=== PATIENT | male | born 1990 | race Caucasian/White ===

== ENCOUNTER 2016-12-24 06:40 | Inpatient (IN) | payer BC, OTHER ==
[~2016-12-24] VITALS: Ht 185.4 cm; Wt 121.2 kg
--- NOTE | ~2016-12-24 | HC ---
[facility] [place] [address] CONSULTATION Name: BRYAN GARCIA Room #: 249-P [facility] IN M.R.#: [id number] Admission: 12/24/16 Attend Phys: Vernon Alcocer DO Discharge: Date of : 88 Report #: [id number] THIS REPORT FOR: //name// CC: FAM physician/PCP Vernon Alcocer DATE OF SERVICE: 12/25/2016 NEPHROLOGY CONSULTATION ATTENDING PHYSICIAN: Vernon Alcocer DO REASON FOR CONSULTATION: Acute kidney injury. HISTORY OF PRESENT ILLNESS: This 26-year-old young man, heavy drinker presented with severe abdominal pain, he was found to have severe pancreatitis. Creatinine elevating and calcium dropping, we are called to see him, potassium 6.3. PAST MEDICAL HISTORY: Otherwise, reasonably unremarkable. No prior surgeries or hospitalizations. He has a history of hypertension. He was on medication for. He does not know what that medication was and is not taking it recently. FAMILY HISTORY: His sister has some sort of kidney problem. His father has hypertension as does his brother. SOCIAL HISTORY: He used to smoke, he quit. He drinks rather heavily maybe a fifth of rum every couple of days with mixed drinks. REVIEW OF SYSTEMS: GENERAL: He has been feeling reasonably well until this illness. EYES: His vision is okay. ENT: Hearing okay, swallows okay. Denies mouth sores. ENDOCRINE: No diabetes or thyroid disease noted in the past. RESPIRATORY: He is not short of breath, no pleuritic pain, no hemoptysis. CARDIAC: No chest pain, angina or history of heart disease or palpitations. GASTROINTESTINAL: He has had some nausea and vomiting, severe abdominal pain with his current episode of pancreatitis. GENITOURINARY: No history of urinary tract infection, dysuria, hematuria, or renal stones. NEUROLOGIC: No history of seizure, syncope, or stroke. No history of neuropathy. PSYCHIATRIC: Denies depression or anxiety. PHYSICAL EXAMINATION: GENERAL: This is a somewhat ill-appearing diaphoretic young man, little bit [facility] [address] [place] [address] CONSULTATION Name: BRYAN GARCIA Room #: 249-P [facility] IN .R.#: [id number] Admission: 12/24/16 Attend Phys: Vernon Alcocer DO Discharge: Date of : 89 Report #: [id number]. SKIN: Otherwise, unremarkable except a little bit cold distally. SKELETAL: Well developed, well nourished. HEENT: Extraocular movements are full. Vision intact. No scleral icterus. Mucous membranes dry. NECK: Veins flat. CHEST: Clear. HEART: Regular. ABDOMEN: Quiet, quite tender in the upper quadrants and mid epigastrium. EXTREMITIES: No peripheral edema. The feet are cold. The peripheral pulses are diminished. LABORATORY DATA: Hemoglobin is 20, up from 17, white count 25.2, 13% bands, platelets 242. Sodium 130, potassium is 6.3, chloride 97, bicarbonate 22, BUN 29, creatinine 2.4, glucose 295, calcium which was 9.7 is down to 6.7. ASSESSMENT AND PLAN: He has acute pancreatitis with a poor prognostic feature of a fall in serum calcium, aggressive IV fluids are being appropriately given. He does have some urine output. I will check urine for sodium and creatinine for completeness. I suspect he may well develop worsening acute renal failure. His creatinine at the time of admission was only 0.9, but ra rapidly to 2.9, now 2.4 with the IV fluids. 1. Hyperkalemia. We will treat the glucose that should help bring the potassium down. I will give him an amp of bicarbonate and lots of IV fluids and hopefully his kidneys will come around. 2. Severe acute pancreatitis, supportive therapy. Prognosis is fair at best. 3. History of hypertension. <ELECTRONICALLY SIGNED> By: Maico Hugo MD 12/26/16 1045 [id number] Maico Hugo MD /nt
--- NOTE | ~2016-12-24 | EKG ---
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 : 1990 Requested By: Jose Willard Order Number: [id number] MD: Jere Garcia Measurements Intervals [place] Rate: 82 P: 47 NV: 155 QRS: 23 QRSD: 100 T: -3 QT: 418 QTc: 489 Interpretive Statements Sinus rhythm Borderline T wave abnormalities Prolonged QT interval Baseline wander in lead(s) V5,V6 No previous ECG available for comparison Electronically Signed On 12-24-2016 7:59:05 CDT by Jere Garcia [email or web address] <ELECTRONICALLY SIGNED> By: Jere Garcia MD, [facility] 12/24/16 [phone] 0647 Jere Garcia MD, FACC /EPI
--- NOTE | ~2016-12-24 | EKG ---
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
--- NOTE | ~2016-12-24 | HC ---
[facility] [place] [address] CONSULTATION Name: GARCIABRYANLoki ANTONIO Room #: 249-P ADM IN M.R.#: [id number] Admission: 12/24/16 Attend Phys: Vernon Alcocer DO Discharge: Date of : 88 Report #: [id number] THIS REPORT FOR: //name// CC: Giovani Yousif MD [facility] physician/PCP Maico Alcocer DO DATE OF SERVICE: 12/25/2016 PULMONARY CONSULTATION REFERRING PROVIDER: Vernon Alcocer DO REASON FOR CONSULTATION: Severe pancreatitis and fever. CHIEF COMPLAINT: Abdominal pain. HISTORY OF PRESENT ILLNESS: Our group was asked to see the patient in consultation in the ICU at [facility]. A 26-year-old male with past medical history significant for hypertension as well as probable alcohol abuse, presented with about 24 hours of severe abdominal pain, sharp in nature yesterday, started on some IV fluids, found to have significant pancreatitis and fatty liver on imaging studies. Denied any fevers, chills or sweats at that time however, ____ become very diaphoretic today, worsening abdominal pain, tachycardia and some diminished urine output. Laboratory is significantly abnormal with signs of hemoconcentration with the hemoglobin now at 20 and hyperkalemia in addition to hypocalcemia. Arterial blood gas revealed some metabolic acidosis with an elevated lactate of 4. He is now in the ICU on broad spectrum antimicrobial coverage and awaiting further management. He is able to speak in full sentences. Other than being diaphoretic, he is reasonably comfortable with the [employer] pump. ALLERGIES: None known. PAST MEDICAL HISTORY: Hypertension, probable alcohol abuse. SOCIAL HISTORY: Nonsmoker. Alcohol consumption as described. He states about a half a fifth per day for the past several months. FAMILY HISTORY: Noncontributory. REVIEW OF SYSTEMS: CONSTITUTIONAL: Some fever, chills and diaphoresis, general malaise. ENT: No upper respiratory congestion or rhinorrhea. [facility] [address] [place] [address] CONSULTATION Name: RADHABRYANLoki ANTONIO Room #: 249-P [facility] IN ..#: [id number] Admission: 12/24/16 Attend Phys: Vernon Alcocer DO Discharge: Date of : 88 Report #: [id number] CARDIOVASCULAR: No chest pains or palpitations. GASTROINTESTINAL: Significant sharp abdominal pain, some mild nausea, no vomiting, no diarrhea. GENITOURINARY: No dysuria, urinary frequency or hematuria. INTEGUMENT: Denies any rash. MUSCULOSKELETAL: No joint pains, has had some mild swelling in his lower extremities since admission. PHYSICAL EXAMINATION: VITAL SIGNS: Afebrile, pulse 120s and regular, respiratory rate 22, blood pressure 142/95, oxygen saturation 97% on room air. GENERAL: This is a pleasant young male in mild distress. HEENT: Clear oropharynx. No thrush. No erythema. NECK: Supple, no lymphadenopathy. LUNGS: Diminished in the bases, but otherwise clear. CARDIOVASCULAR: Heart is regular, tachycardic. No murmurs noted. ABDOMEN: Diffusely distended with some hepatosplenomegaly noted. EXTREMITIES: With 1+ edema, slightly cool, but 1+ pulses. LABORATORY DATA: CT scan as described in the HPI. White blood cell count 25,000, hemoglobin 20, hematocrit 60, platelet count 242. Sodium 130, potassium 6.3, chloride 97, bicarbonate 22, BUN 29, creatinine 2.4, glucose 295, calcium 6.7. IMPRESSION: 1. Severe pancreatitis without finding of pseudocyst on CT scan. 2. Febrile illness. 3. Acute renal failure, nonoliguric. 4. Hyperkalemia. 5. Hyperglycemia. SUGGESTIONS: 1. Aggressive hydration. 2. Insulin to control hyperglycemia. 3. Nephrology consultation. 4. Observation for possible alcohol withdrawal. 5. Additional recommendations to follow along with you. Thank you for requesting our suggestions. Total critical care time 25 minutes, not including procedures discussed with nursing, the patient and Dr. Hugo, nephrology. By: [id number] Jeronimo Santana MD /nt
--- NOTE | ~2016-12-24 | HC ---
[facility] [address] [place] [address] CONSULTATION Name: BRYAN GARCIA Room #: 249-P [facility] IN M.R.#: [id number] Admission: 12/24/16 Attend Phys: Vernon Alcocer DO Discharge: Date of : 88 Report #: [id number] THIS REPORT FOR: //name// CC: RAD physician/PCP Vernon Alcocer REASON FOR CONSULTATION: I was asked to evaluate concerning fever and sepsis in the setting of acute pancreatitis. HISTORY OF PRESENT ILLNESS: The patient is a 26-year-old who presented through the emergency room on 12/24/2016, with rather acute onset of nausea, vomiting and upper abdominal to back pain. No prior history of pancreatitis. He drinks liquor on a daily basis. Otherwise, he has a history of hypertension. No reported trauma. No new medications. Admitted through the emergency room. Over the last 12 hours, H has had episode of chills, tachycardia and was transferred to monitored unit. He reports significant abdominal pain when attempting to move. Pain radiates to his back. He has had no vomiting so far today. He has had no stool output, had decreased urine output. ALLERGIES: PENICILLIN with hives. MEDICATIONS: As noted on his MAR, now receiving IV fluids and morphine. PAST MEDICAL HISTORY: Hypertension. FAMILY HISTORY: Noncontributory. SOCIAL HISTORY: Nonsmoker, no HIV risk factors. , he lived in [place], then in [place] for last several months. REVIEW OF SYSTEMS: No cough or sputum production. Does have some shortness of breath with activity. PHYSICAL EXAMINATION: VITAL SIGNS: Temperature 97.4, pulse 127, respiratory rate 22, and blood pressure 142/95. GENERAL: The patient was alert and conversant. SKIN: Mottled in his extremities. EYES: Unremarkable. MOUTH: Unremarkable. NECK: Supple. LUNGS: Few crackles in the bases bilaterally. HEART: Tachycardic and regular. ABDOMEN: Diffusely tender with guarding. Marked tenderness in the epigastric region. EXTREMITIES: Unremarkable. NEUROLOGIC: Nonfocal. [facility] [address] [place] [address] CONSULTATION Name: BRYAN GARCIA Room #: 249-P [facility] IN M.R.#: [id number] Admission: 12/24/16 Attend Phys: Vernon Alcocer DO Discharge: Date of : 88 Report #: [id number] LABORATORY STUDIES: Sodium 130, potassium 6.3, bicarbonate 22, anion gap of 11, creatinine 2.4, glucose 272, AST 72, ALT 131, alk phos 49, bilirubin 1.5, lipase 10,000, albumin at 3.6, lactate 3.7, triglycerides 291. Hemoglobin 20, WBC 25.2, platelet count 242,000, 74% neutrophils, 13% bands. ABGs this morning on room air showed a pO2 of 68, pCO2 of 30, pH 7.3, the lactate of 4. CT scan of the abdomen and pelvis showed acute pancreatitis changes with surrounding inflammation and fluid tracking down his gutters. No loculated fluid collections. Fatty liver. Basilar atelectasis. IMPRESSION: A 26-year-old with acute pancreatitis and severe sepsis. He has marked leukocytosis, acute renal failure, mild lactic acidosis and developing basilar atelectasis. The patient is mottled and has had decreased urine output. He has hyperkalemia. He has hypocalcemia. Recommend ICU transfer for more intensive monitoring and fluid resuscitation. We will continue with IV antibiotic therapy and serial laboratory studies. Discussed with nursing staff and the patient's family. <ELECTRONICALLY SIGNED> By: Giovani Yousif MD 12/26/16 0850 1740 2037 Giovani Yousif MD /nt
[2016-12-24 06:43] VITALS: BP 145/98
[2016-12-24 07:04] LABS: HEMOGLOBIN 17.2 gm/dL (14.0-18.0); MCH 32.3 pg (26.0-34.0); MCHC 33.8 g/dL (28.0-37.0); MCV 95.7 fL (80.0-100.0); RBC 5.33 mil/uL (4.50-6.00); RDW 12.4 % (10.5-14.5); WBC 12.8 thou/uL (4.0-11.0)
[2016-12-24 07:14] LABS: CALCIUM 9.7 mg/dL (8.5-10.1); CREATININE 0.9 mg/dL (0.7-1.3); POTASSIUM 4.1 mmol/L (3.5-5.1)
[2016-12-24 07:21] LABS: ALBUMIN 4.4 g/dL (3.4-5.0); TOTAL BILIRUBIN 0.5 mg/dL (<0.1-1.0); TOTAL PROTEIN 8.1 g/dL (6.4-8.2)
[2016-12-24 08:38] VITALS: BP 161/95
[2016-12-24 11:00] VITALS: BP 172/109
[2016-12-24 11:24] VITALS: BP 182/123
[2016-12-24 16:00] VITALS: BP 198/138; BP 84/56
[2016-12-24 19:39] VITALS: BP 160/120
[2016-12-25] VITALS (13 sets, daily range): BP systolic 109–167; BP diastolic 54–129
[2016-12-25 06:28] LABS: MCH 33.1 pg (26.0-34.0); MCHC 33.7 g/dL (28.0-37.0); PLATELET COUNT 235 thou/uL (150-400); RBC 5.92 mil/uL (4.50-6.00); RDW 13.1 % (10.5-14.5); WBC 22.9 thou/uL (4.0-11.0)
[2016-12-25 06:31] LABS: HEMOGLOBIN 19.6 gm/dL (14.0-18.0); MANUAL DIFF YES
[2016-12-25 09:05] LABS: ALBUMIN 3.5 g/dL (3.4-5.0); ALKALINE PHOSPHATASE 49 U/L (46-116); BUN 24 mg/dL (7-18); CHLORIDE 95 mmol/L (98-107); CHOLESTEROL 157 mg/dL (<200); CO2 22 mmol/L (21-32); DIRECT BILIRUBIN 0.3 mg/dL (<0.1-0.3); GLUCOSE 343 mg/dL (74-106); HDL CHOLESTEROL 21 mg/dL (>40); LDL CHOLESTEROL 78 mg/dL (<100); SGOT 72 U/L (15-37); SGPT 135 U/L (30-65); TC:HDL 7.5 Ratio (Not establshd); TOTAL BILIRUBIN 1.4 mg/dL (<0.1-1.0); TOTAL PROTEIN 7.6 g/dL (6.4-8.2); TRIGLYCERIDE 291 mg/dL (<150); VLDL 58 mg/dL (<40)
[2016-12-25 09:22] LABS: ANION GAP 13 mmol/L (7-16); SODIUM 130 mmol/L (136-145)
[2016-12-25 09:23] LABS: CREATININE 2.9 mg/dL (0.7-1.3); POTASSIUM 6.2 mmol/L (3.5-5.1)
[2016-12-25 09:24] LABS: CALCIUM 7.6 mg/dL (8.5-10.1)
[2016-12-25 09:31] LABS: ABSOLUTE NEUTROPHILS 19.9 thou/uL (1.4-8.2); PLATELET ESTIMATE NORMAL; TOTAL CELL COUNT 100
[2016-12-25 10:01] LABS: HEMATOCRIT 59.9 % (42.0-52.0); HEMOGLOBIN 20.1 gm/dL (14.0-18.0); MCH 32.8 pg (26.0-34.0); MCHC 33.5 g/dL (28.0-37.0); MCV 97.8 fL (80.0-100.0); RBC 6.13 mil/uL (4.50-6.00); RDW 13.1 % (10.5-14.5); WBC 25.2 thou/uL (4.0-11.0)
[2016-12-25 10:13] LABS: CALCIUM 7.4 mg/dL (8.5-10.1); CREATININE 2.6 mg/dL (0.7-1.3)
[2016-12-25 10:18] LABS: POTASSIUM 6.1 mmol/L (3.5-5.1)
[2016-12-25 10:19] LABS: ALBUMIN 3.6 g/dL (3.4-5.0); TOTAL BILIRUBIN 1.5 mg/dL (<0.1-1.0); TOTAL PROTEIN 7.5 g/dL (6.4-8.2)
[2016-12-25 11:02] LABS: ABG SAMPLE TYPE ARTERIAL; BE(vivo) -8.4 mmol/L (-2 to +3); FIO2 21 %; HCO3 15.8 mmol/L (22.0-26.0); LACTATE 4.13 mmol/L (0.5-2.0); O2(CT) 26.4 mL/dL (15.0-23.0); O2Hb 92.5 % (92.0-98.0); PCO2 30.8 mmHg (35.0-45.0); PO2 68.4 mmHg (80.0-100.0); STICK SITE L.RADIAL; pH 7.327 (7.360-7.450); sO2 92.7 % (92.0-98.0); tCO2 16.7 mmol/L (24.0-30.0)
[2016-12-25 11:43] LABS: % SATURATION 12 % (20-39); IRON 39 ug/dL (65-175); TIBC 331 ug/dL (250-450); UIBC 292 ug/dL
[2016-12-25 15:41] LABS: CALCIUM 6.7 mg/dL (8.5-10.1); CREATININE 2.4 mg/dL (0.7-1.3)
[2016-12-25 15:46] LABS: POTASSIUM 6.3 mmol/L (3.5-5.1)
[2016-12-25 20:12] LABS: URINE BLOOD 1+ (Negative); URINE COLOR ORANGE; URINE GLUCOSE-RANDOM* NEGATIVE (Negative); URINE KETONES 1+ (Negative); URINE LEUKOCYTES-REFLEX NEGATIVE (Negative); URINE PROTEIN (DIPSTICK) 2+ (Negative); URINE SPECIFIC GRAVITY >= 1.030 (1.003-1.035); URINE UROBILINOGEN 0.2 E.U./dl (0.2-1.0)
[2016-12-25 20:14] LABS: ICTOTEST (BILI CONFIRMATORY) Negative (Negative); URINE BILIRUBIN NEGATIVE (Negative)
[2016-12-25 20:19] LABS: URINE CREATININE-RANDOM* 396.1 mg/dL
[2016-12-25 20:26] LABS: FINE GRANULAR CASTS >10 Many /LPF (None Seen); HYALINE CASTS >10 Many /LPF (None Seen)
[2016-12-25 20:26] LABS: CALCIUM 6.2 mg/dL (8.5-10.1); CREATININE 1.9 mg/dL (0.7-1.3); PHOSPHORUS 2.4 mg/dL (2.5-4.9)
[2016-12-25 20:27] LABS: AMORPHOUS URATES Few /LPF (None Seen); SQUAMOUS 0-3 Few /LPF (0-3)
[2016-12-25 20:28] LABS: URINE RBC 3-10 Few /HPF (0-2); URINE WBC-REFLEX 6-15 Few /HPF (0-5)
[2016-12-25 20:33] LABS: POTASSIUM 5.1 mmol/L (3.5-5.1)
[2016-12-25 21:08] LABS: CREATININE 1.9 mg/dL (0.7-1.3)
[2016-12-25 21:12] LABS: ABG SAMPLE TYPE VENOUS; BE(vivo) -6.6 mmol/L (-2 to +3); HCO3 16.9 mmol/L (22.0-26.0); LACTATE 2.64 mmol/L (0.5-2.0); O2(CT) 15.3 mL/dL (15.0-23.0); O2Hb VENOUS 65.5 (65.0-85.0); PCO2 VENOUS 29.4 mmHg (41.0-51.0); PO2 VENOUS 32.9 mmHg (35.0-45.0); sO2 VENOUS 62.9 % (65.0-85.0); tCO2 17.8 mmol/L (24.0-30.0)
[2016-12-25 21:13] LABS: ABG COMMENT NO COMPLICATIONS.; STICK SITE PICC
[2016-12-25 21:14] LABS: APTT 25.2 Seconds (24.5-32.8); FIBRINOGEN 421.4 mg/dL (210-360); INR 1.3; PROTIME 13.4 Seconds (9.3-11.4)
[2016-12-25 22:18] LABS: ABG SAMPLE TYPE VENOUS; BE(vivo) -8.6 mmol/L (-2 to +3); HCO3 14.8 mmol/L (22.0-26.0); LACTATE 1.91 mmol/L (0.5-2.0); O2Hb VENOUS 64.2 (65.0-85.0); PCO2 VENOUS 26.2 mmHg (41.0-51.0); PO2 VENOUS 33.2 mmHg (35.0-45.0); sO2 VENOUS 63.4 % (65.0-85.0); tCO2 15.6 mmol/L (24.0-30.0)
[2016-12-25 22:19] LABS: ABG COMMENT NO COMPLICATIONS.; STICK SITE PICC
[2016-12-25 23:48] LABS: ABG SAMPLE TYPE VENOUS; BE(vivo) -4.8 mmol/L (-2 to +3); HCO3 19.3 mmol/L (22.0-26.0); LACTATE 2.91 mmol/L (0.5-2.0); O2(CT) 17.7 mL/dL (15.0-23.0); O2Hb VENOUS 72.4 (65.0-85.0); PO2 VENOUS 37.8 mmHg (35.0-45.0); sO2 VENOUS 70.9 % (65.0-85.0); tCO2 20.4 mmol/L (24.0-30.0)
[2016-12-25 23:49] LABS: STICK SITE LINE
[2016-12-26] VITALS (21 sets, daily range): BP systolic 130–169; BP diastolic 85–112
[2016-12-26 01:07] LABS: POTASSIUM 3.5 mmol/L (3.5-5.1)
[2016-12-26 01:15] LABS: CREATININE 1.4 mg/dL (0.7-1.3)
[2016-12-26 01:16] LABS: CALCIUM 5.7 mg/dL (8.5-10.1)
[2016-12-26 01:25] LABS: FIBRINOGEN 327.3 mg/dL (210-360); INR 1.4; PROTIME 14.7 Seconds (9.3-11.4)
[2016-12-26 01:26] LABS: APTT 35.9 Seconds (24.5-32.8)
[2016-12-26 04:10] LABS: GLYCOHEMOGLOBIN (HGB A1C) 6.8 % (4.8-5.6)
[2016-12-26 05:56] LABS: MCH 32.6 pg (26.0-34.0); MCHC 33.8 g/dL (28.0-37.0); MCV 96.5 fL (80.0-100.0); RBC 4.36 mil/uL (4.50-6.00); RDW 12.8 % (10.5-14.5); WBC 18.9 thou/uL (4.0-11.0)
[2016-12-26 06:04] LABS: HEMOGLOBIN 14.2 gm/dL (14.0-18.0)
[2016-12-26 06:05] LABS: MANUAL DIFF YES
[2016-12-26 06:07] LABS: APTT 37.2 Seconds (24.5-32.8); FIBRINOGEN 367.5 mg/dL (210-360); INR 1.4; PROTIME 14.3 Seconds (9.3-11.4)
[2016-12-26 06:14] LABS: ALBUMIN 1.7 g/dL (3.4-5.0); ALKALINE PHOSPHATASE 26 U/L (46-116); ANION GAP 10 mmol/L (7-16); BUN 17 mg/dL (7-18); CHLORIDE 111 mmol/L (98-107); CO2 19 mmol/L (21-32); CREATININE 0.9 mg/dL (0.7-1.3); GLUCOSE 170 mg/dL (74-106); PHOSPHORUS 1.3 mg/dL (2.5-4.9); SGOT 44 U/L (15-37); SGPT 56 U/L (30-65); SODIUM 140 mmol/L (136-145); TOTAL PROTEIN 4.3 g/dL (6.4-8.2)
[2016-12-26 06:19] LABS: CALCIUM < 5.0 mg/dL (8.5-10.1); MAGNESIUM 0.8 mg/dL (1.8-2.4); POTASSIUM 2.9 mmol/L (3.5-5.1)
[2016-12-26 09:37] LABS: ABSOLUTE NEUTROPHILS 17.6 thou/uL (1.4-8.2); PLATELET COUNT 122 thou/uL (150-400); PLATELET ESTIMATE NORMAL; TOTAL CELL COUNT 100
[2016-12-26 14:20] LABS: HEMATOCRIT 46.2 % (42.0-52.0); MCH 33.2 pg (26.0-34.0); MCHC 34.5 g/dL (28.0-37.0); MCV 96.2 fL (80.0-100.0); PLATELET COUNT 144 thou/uL (150-400); RBC 4.81 mil/uL (4.50-6.00); RDW 12.7 % (10.5-14.5); WBC 17.7 thou/uL (4.0-11.0)
[2016-12-26 14:24] LABS: MANUAL DIFF YES
[2016-12-26 14:38] LABS: ALBUMIN 2.2 g/dL (3.4-5.0); MAGNESIUM 1.9 mg/dL (1.8-2.4)
[2016-12-26 14:40] LABS: POTASSIUM 3.9 mmol/L (3.5-5.1)
[2016-12-26 14:55] LABS: ABSOLUTE NEUTROPHILS 15.2 thou/uL (1.4-8.2); ATYPICAL LYMPHS 2 %; TOTAL CELL COUNT 100
[2016-12-26 14:58] LABS: ANISOCYTOSIS SLIGHT
[2016-12-27] VITALS (24 sets, daily range): BP systolic 129–185; BP diastolic 75–120
[2016-12-27 04:41] LABS: HEMATOCRIT 41.5 % (42.0-52.0); HEMOGLOBIN 14.1 gm/dL (14.0-18.0); MCH 32.8 pg (26.0-34.0); MCHC 34.1 g/dL (28.0-37.0); MCV 96.1 fL (80.0-100.0); PLATELET COUNT 143 thou/uL (150-400); RBC 4.32 mil/uL (4.50-6.00); RDW 12.8 % (10.5-14.5); WBC 14.9 thou/uL (4.0-11.0)
[2016-12-27 04:44] LABS: MANUAL DIFF YES
[2016-12-27 04:54] LABS: ALBUMIN 2.1 g/dL (3.4-5.0); CREATININE 0.9 mg/dL (0.7-1.3); MAGNESIUM 1.7 mg/dL (1.8-2.4); PHOSPHORUS 1.6 mg/dL (2.5-4.9); POTASSIUM 3.4 mmol/L (3.5-5.1); TOTAL BILIRUBIN 1.1 mg/dL (<0.1-1.0); TOTAL PROTEIN 5.8 g/dL (6.4-8.2)
[2016-12-27 04:56] LABS: CALCIUM 5.9 mg/dL (8.5-10.1)
[2016-12-27 05:45] LABS: ABSOLUTE NEUTROPHILS 13.6 thou/uL (1.4-8.2); TOTAL CELL COUNT 100
[2016-12-27 14:36] LABS: ALBUMIN 2.1 g/dL (3.4-5.0); CALCIUM 6.4 mg/dL (8.5-10.1); CREATININE 0.8 mg/dL (0.7-1.3); PHOSPHORUS 1.5 mg/dL (2.5-4.9); POTASSIUM 3.6 mmol/L (3.5-5.1)
[2016-12-28] VITALS (17 sets, daily range): BP systolic 132–179; BP diastolic 81–129
[2016-12-28 04:35] LABS: MAGNESIUM 1.9 mg/dL (1.8-2.4); PHOSPHORUS 2.2 mg/dL (2.5-4.9)
[2016-12-28 04:38] LABS: CREATININE 0.7 mg/dL (0.7-1.3); POTASSIUM 3.4 mmol/L (3.5-5.1); TOTAL BILIRUBIN 1.3 mg/dL (<0.1-1.0); TOTAL PROTEIN 4.8 g/dL (6.4-8.2)
[2016-12-28 11:05] LABS: HEMATOCRIT 36.6 % (42.0-52.0); HEMOGLOBIN 12.7 gm/dL (14.0-18.0); MCHC 34.6 g/dL (28.0-37.0); MCV 95.2 fL (80.0-100.0); PLATELET COUNT 167 thou/uL (150-400); RBC 3.84 mil/uL (4.50-6.00); RDW 12.6 % (10.5-14.5); WBC 15.6 thou/uL (4.0-11.0)
[2016-12-28 11:23] LABS: MANUAL DIFF YES
[2016-12-28 12:14] LABS: ABSOLUTE NEUTROPHILS 11.4 thou/uL (1.4-8.2); MYELOCYTES 3 %; TOTAL CELL COUNT 100
[2016-12-28 12:15] LABS: ANISOCYTOSIS SLIGHT
[2016-12-28 17:24] LABS: URINE BILIRUBIN NEGATIVE (Negative); URINE BLOOD TRACE (Negative); URINE COLOR YELLOW; URINE GLUCOSE-RANDOM* NEGATIVE (Negative); URINE KETONES NEGATIVE (Negative); URINE LEUKOCYTES-REFLEX NEGATIVE (Negative); URINE PROTEIN (DIPSTICK) NEGATIVE (Negative); URINE SPECIFIC GRAVITY <= 1.005 (1.003-1.035)
[2016-12-28 18:32] LABS: ALBUMIN 2.1 g/dL (3.4-5.0); CALCIUM 7.3 mg/dL (8.5-10.1); CREATININE 0.7 mg/dL (0.7-1.3); PHOSPHORUS 2.7 mg/dL (2.5-4.9); POTASSIUM 3.6 mmol/L (3.5-5.1)
[2016-12-29] VITALS (23 sets, daily range): BP systolic 152–183; BP diastolic 90–116
[2016-12-29 06:15] LABS: HEMATOCRIT 37.1 % (42.0-52.0); HEMOGLOBIN 12.5 gm/dL (14.0-18.0); MCH 32.4 pg (26.0-34.0); MCHC 33.9 g/dL (28.0-37.0); MCV 95.8 fL (80.0-100.0); PLATELET COUNT 193 thou/uL (150-400); RBC 3.87 mil/uL (4.50-6.00); WBC 16.3 thou/uL (4.0-11.0)
[2016-12-29 06:17] LABS: MANUAL DIFF YES
[2016-12-29 06:28] LABS: ALBUMIN 2.2 g/dL (3.4-5.0); CREATININE 0.7 mg/dL (0.7-1.3); MAGNESIUM 1.9 mg/dL (1.8-2.4); PHOSPHORUS 2.9 mg/dL (2.5-4.9); POTASSIUM 3.5 mmol/L (3.5-5.1); TOTAL BILIRUBIN 1.7 mg/dL (<0.1-1.0); TOTAL PROTEIN 6.1 g/dL (6.4-8.2)
[2016-12-29 06:49] LABS: ABSOLUTE NEUTROPHILS 9.5 thou/uL (1.4-8.2); ANISOCYTOSIS 1+; METAMYELOCYTES 2 %; POLYCHROMASIA OCCASIONAL; TOTAL CELL COUNT 100
[2016-12-29 10:36] LABS: FOLIC ACID 11.3 ng/mL (8.6-58.9)
[2016-12-29 16:12] LABS: FREE T4 1.37 ng/dL (0.82-1.77)
[2016-12-30] VITALS (17 sets, daily range): BP systolic 151–197; BP diastolic 93–124
[2016-12-30 02:39] LABS: ALBUMIN 2.2 g/dL (3.4-5.0); CALCIUM 8.1 mg/dL (8.5-10.1); CREATININE 0.8 mg/dL (0.7-1.3); POTASSIUM 3.1 mmol/L (3.5-5.1); TOTAL BILIRUBIN 1.5 mg/dL (<0.1-1.0); TOTAL PROTEIN 6.2 g/dL (6.4-8.2)
[2016-12-30 08:58] LABS: HEMATOCRIT 35.6 % (42.0-52.0); HEMOGLOBIN 12.2 gm/dL (14.0-18.0); MANUAL DIFF YES; MCH 32.4 pg (26.0-34.0); MCHC 34.4 g/dL (28.0-37.0); MCV 94.2 fL (80.0-100.0); PLATELET COUNT 209 thou/uL (150-400); RBC 3.78 mil/uL (4.50-6.00); RDW 12.8 % (10.5-14.5); WBC 17.7 thou/uL (4.0-11.0)
[2016-12-30 09:20] LABS: ABSOLUTE NEUTROPHILS 14.3 thou/uL (1.4-8.2); METAMYELOCYTES 2 %; NUCLEATED RBCS 1 /100WBC; TOTAL CELL COUNT 100
[2016-12-30 09:21] LABS: ANISOCYTOSIS 1+; POLYCHROMASIA OCCASIONAL
[2016-12-30 09:22] LABS: TOXIC GRANULATION 2+
[2016-12-30 11:11] LABS: URINE CREATININE 22.9 mg/dL (Not Estab.)
[2016-12-31 03:59] VITALS: BP 162/95
[2016-12-31 06:28] LABS: HEMATOCRIT 36.5 % (42.0-52.0); HEMOGLOBIN 12.5 gm/dL (14.0-18.0); MCH 32.6 pg (26.0-34.0); MCHC 34.2 g/dL (28.0-37.0); MCV 95.3 fL (80.0-100.0); PLATELET COUNT 217 thou/uL (150-400); RBC 3.83 mil/uL (4.50-6.00); RDW 13.3 % (10.5-14.5); WBC 19.7 thou/uL (4.0-11.0)
[2016-12-31 06:31] LABS: MANUAL DIFF YES
[2016-12-31 06:46] LABS: ALBUMIN 2.1 g/dL (3.4-5.0); CALCIUM 8.3 mg/dL (8.5-10.1); CREATININE 0.7 mg/dL (0.7-1.3); POTASSIUM 3.7 mmol/L (3.5-5.1); TOTAL BILIRUBIN 1.3 mg/dL (<0.1-1.0)
[2016-12-31 07:38] VITALS: BP 159/103
[2016-12-31 08:39] LABS: ABSOLUTE NEUTROPHILS 16.5 thou/uL (1.4-8.2); TOTAL CELL COUNT 100
[2016-12-31 08:40] LABS: LARGE PLATELETS OCCASIONAL
[2016-12-31 11:06] VITALS: BP 156/98
[2016-12-31 15:41] VITALS: BP 155/104
[2016-12-31 19:49] VITALS: BP 159/108
[2017-01-01 03:36] VITALS: BP 137/93
[2017-01-01 05:32] LABS: HEMATOCRIT 35.2 % (42.0-52.0); HEMOGLOBIN 11.9 gm/dL (14.0-18.0); MCH 32.2 pg (26.0-34.0); MCHC 33.7 g/dL (28.0-37.0); MCV 95.5 fL (80.0-100.0); PLATELET COUNT 236 thou/uL (150-400); RBC 3.69 mil/uL (4.50-6.00); WBC 17.9 thou/uL (4.0-11.0)
[2017-01-01 05:47] LABS: ALBUMIN 1.9 g/dL (3.4-5.0); CALCIUM 8.2 mg/dL (8.5-10.1); CREATININE 0.7 mg/dL (0.7-1.3); POTASSIUM 3.7 mmol/L (3.5-5.1); TOTAL BILIRUBIN 1.1 mg/dL (<0.1-1.0); TOTAL PROTEIN 5.7 g/dL (6.4-8.2)
[2017-01-01 05:54] LABS: MANUAL DIFF YES
[2017-01-01 07:06] VITALS: BP 146/99
[2017-01-01 08:04] LABS: ABSOLUTE NEUTROPHILS 13.4 thou/uL (1.4-8.2); MYELOCYTES 1 %; TOTAL CELL COUNT 100
[2017-01-01 08:06] LABS: TOXIC GRANULATION 1+
[2017-01-01 11:50] VITALS: BP 138/91
[2017-01-01 15:34] VITALS: BP 148/99
[2017-01-01 19:23] VITALS: BP 136/93
[2017-01-02 04:17] LABS: ABSOLUTE NEUTROPHILS 13.6 thou/uL (1.4-8.2); BASOPHILS 0.3 % (0.0-2.0); EOSINOPHILS 1.4 % (0.0-3.0); HEMATOCRIT 33.8 % (42.0-52.0); HEMOGLOBIN 11.3 gm/dL (14.0-18.0); LYMPHOCYTES 11.1 % (24.0-44.0); MCHC 33.5 g/dL (28.0-37.0); MCV 95.7 fL (80.0-100.0); MONOCYTES 8.6 % (1.0-8.0); PLATELET COUNT 281 thou/uL (150-400); POLYS 78.6 % (36.0-66.0); RBC 3.53 mil/uL (4.50-6.00); RDW 13.2 % (10.5-14.5); WBC 17.3 thou/uL (4.0-11.0)
[2017-01-02 04:28] LABS: MANUAL DIFF NO
[2017-01-02 04:53] VITALS: BP 153/105
[2017-01-02 04:56] LABS: ALBUMIN 1.9 g/dL (3.4-5.0); CALCIUM 8.2 mg/dL (8.5-10.1); CREATININE 0.7 mg/dL (0.7-1.3); POTASSIUM 3.5 mmol/L (3.5-5.1); TOTAL PROTEIN 5.8 g/dL (6.4-8.2)
[2017-01-02 07:29] VITALS: BP 166/93
[2017-01-02 11:00] VITALS: BP 139/96
[2017-01-02 15:38] VITALS: BP 153/105
[2017-01-02 20:24] VITALS: BP 163/112
[2017-01-03 00:13] VITALS: BP 161/110
[2017-01-03 04:19] VITALS: BP 155/94
[2017-01-03 07:50] VITALS: BP 150/100
[2017-01-03 11:45] VITALS: BP 149/106
[2017-01-03 16:00] VITALS: BP 161/110
[2017-01-03 19:45] VITALS: BP 153/103
[2017-01-04 04:05] VITALS: BP 154/103
[2017-01-04 06:22] LABS: ABSOLUTE NEUTROPHILS 8.1 thou/uL (1.4-8.2); BASOPHILS 0.6 % (0.0-2.0); EOSINOPHILS 1.4 % (0.0-3.0); HEMATOCRIT 26.5 % (42.0-52.0); LYMPHOCYTES 14.6 % (24.0-44.0); MCH 32.8 pg (26.0-34.0); MCV 96.7 fL (80.0-100.0); MONOCYTES 8.6 % (1.0-8.0); PLATELET COUNT 289 thou/uL (150-400); POLYS 74.8 % (36.0-66.0); RBC 2.74 mil/uL (4.50-6.00); RDW 13.2 % (10.5-14.5); WBC 10.9 thou/uL (4.0-11.0)
[2017-01-04 06:24] LABS: MANUAL DIFF NO
[2017-01-04 06:36] LABS: ALBUMIN 1.5 g/dL (3.4-5.0); CALCIUM 6.3 mg/dL (8.5-10.1); CREATININE 0.5 mg/dL (0.7-1.3); TOTAL BILIRUBIN 0.5 mg/dL (<0.1-1.0); TOTAL PROTEIN 4.3 g/dL (6.4-8.2)
[2017-01-04 06:43] LABS: POTASSIUM 2.5 mmol/L (3.5-5.1)
[2017-01-04 07:15] VITALS: BP 160/112
[2017-01-04 10:00] LABS: MAGNESIUM 1.3 mg/dL (1.8-2.4)
[2017-01-04 11:15] VITALS: BP 151/106
[2017-01-04 16:05] VITALS: BP 165/110
[2017-01-04 19:52] VITALS: BP 144/97
[2017-01-05 04:15] VITALS: BP 158/108
[2017-01-05 04:18] LABS: HEMATOCRIT 35.1 % (42.0-52.0); MCH 32.3 pg (26.0-34.0); MCHC 33.7 g/dL (28.0-37.0); MCV 96.1 fL (80.0-100.0); RBC 3.65 mil/uL (4.50-6.00); RDW 12.9 % (10.5-14.5); WBC 14.9 thou/uL (4.0-11.0)
[2017-01-05 04:26] LABS: CREATININE 0.7 mg/dL (0.7-1.3)
[2017-01-05 04:38] LABS: HEMOGLOBIN 11.8 gm/dL (14.0-18.0); PLATELET COUNT 462 thou/uL (150-400)
[2017-01-05 04:39] LABS: MANUAL DIFF YES
[2017-01-05 07:15] VITALS: BP 163/112
[2017-01-05 07:45] LABS: ABSOLUTE NEUTROPHILS 11.2 thou/uL (1.4-8.2); METAMYELOCYTES 1 %; POLYCHROMASIA SLIGHT; TOTAL CELL COUNT 100; TOXIC GRANULATION 1+
[2017-01-05 11:13] VITALS: BP 113/60
[2017-01-05 13:20] VITALS: BP 113/60
== END 2017-01-05 14:40 | disposition home or self-care (01) | DRG 871 ==
LOC: ER 06:40 → 4E 08:38 → EROBS 08:38 → 2N 08:38 → 4E 10:53 → 3W 12-25 12:31 → ICU 12-25 18:11 → 2N 12-30 20:54
PROVIDERS: Emergency Medicine; Family Medicine; Internal Medicine Gastroenterology; Internal Medicine Nephrology; Nurse Practitioner; Specialist
PROC: 02HV33Z Insertion of Infusion Device into Superior Vena Cava, Percutaneous Approach (ICD-10-PCS; principal; 2016-12-25)
DX: A41.9 Sepsis, unspecified organism (principal); K85.90 Acute pancreatitis without necrosis or infection, unspecified; N17.9 Acute kidney failure, unspecified; R65.20 Severe sepsis without septic shock; I10 Essential (primary) hypertension; Z88.0 Allergy status to penicillin; E87.5 Hyperkalemia; E83.51 Hypocalcemia; Z82.49 Family history of ischemic heart disease and other diseases of the circulatory system; Z84.1 Family history of disorders of kidney and ureter; Z87.891 Personal history of nicotine dependence; E11.65 Type 2 diabetes mellitus with hyperglycemia; E83.39 Other disorders of phosphorus metabolism; E83.42 Hypomagnesemia; E87.6 Hypokalemia; F10.10 Alcohol abuse, uncomplicated; G25.81 Restless legs syndrome; K76.0 Fatty (change of) liver, not elsewhere classified; E86.9 Volume depletion, unspecified; G47.33 Obstructive sleep apnea (adult) (pediatric)
CPT/HCPCS: 10081; 10183; 10203; 27000

== ENCOUNTER 2017-01-24 16:09 | Inpatient (IN) | payer BC, OTHER ==
[~2017-01-24] VITALS: Ht 185.4 cm; Wt 104.3 kg
[~2017-01-24 16:09] MED LIST: B/P MED; COLACE 100 MG100 MG PO; COREG6.25 MG PO; MIRALAX17 GM PO; NORCO 5-325 TA1 EACH PO; PANCREAZE DR 11 EAC2 PO
[2017-01-24 16:12] VITALS: BP 178/127
[2017-01-24 17:06] LABS: ABSOLUTE NEUTROPHILS 5.6 thou/uL (1.4-8.2); BASOPHILS 1.1 % (0.0-2.0); EOSINOPHILS 4.3 % (0.0-3.0); HEMATOCRIT 39.8 % (42.0-52.0); LYMPHOCYTES 24.7 % (24.0-44.0); MCH 31.3 pg (26.0-34.0); MCHC 33.8 g/dL (28.0-37.0); MCV 92.7 fL (80.0-100.0); MONOCYTES 7.1 % (1.0-8.0); POLYS 62.8 % (36.0-66.0); RDW 12.7 % (10.5-14.5)
[2017-01-24 17:07] LABS: HEMOGLOBIN 13.5 gm/dL (14.0-18.0); MANUAL DIFF NO; PLATELET COUNT 285 thou/uL (150-400)
[2017-01-24 17:16] LABS: CALCIUM 9.7 mg/dL (8.5-10.1); CREATININE 0.8 mg/dL (0.7-1.3); POTASSIUM 4.2 mmol/L (3.5-5.1)
[2017-01-24 17:33] LABS: ALBUMIN 3.7 g/dL (3.4-5.0); DIRECT BILIRUBIN 0.1 mg/dL (<0.1-0.3); TOTAL BILIRUBIN 0.6 mg/dL (<0.1-1.0); TOTAL PROTEIN 7.8 g/dL (6.4-8.2)
[2017-01-24 18:49] VITALS: BP 185/113
[2017-01-24 19:14] VITALS: BP 149/97
[2017-01-24 19:42] VITALS: BP 155/97
[2017-01-25 04:17] LABS: ALBUMIN 3.1 g/dL (3.4-5.0); CALCIUM 8.7 mg/dL (8.5-10.1); CREATININE 0.7 mg/dL (0.7-1.3); MAGNESIUM 1.5 mg/dL (1.8-2.4); POTASSIUM 3.5 mmol/L (3.5-5.1); TOTAL BILIRUBIN 0.7 mg/dL (<0.1-1.0); TOTAL PROTEIN 6.7 g/dL (6.4-8.2)
[2017-01-25 04:33] LABS: URINE BILIRUBIN NEGATIVE (Negative); URINE BLOOD NEGATIVE (Negative); URINE COLOR YELLOW; URINE GLUCOSE-RANDOM* NEGATIVE (Negative); URINE KETONES 1+ (Negative); URINE NITRITE NEGATIVE (Negative); URINE PROTEIN (DIPSTICK) NEGATIVE (Negative); URINE UROBILINOGEN 0.2 E.U./dl (0.2-1.0)
[2017-01-25 06:16] VITALS: BP 151/107
[2017-01-25 07:49] VITALS: BP 150/90
[2017-01-25 09:59] VITALS: BP 150/90
[2017-01-25 10:09] LABS: PHOSPHORUS 5.5 mg/dL (2.5-4.9)
[2017-01-25 15:45] VITALS: BP 153/95
[2017-01-25 20:00] VITALS: BP 153/103
[2017-01-26] VITALS: BP 118/60
[2017-01-26 04:31] VITALS: BP 149/99
[2017-01-26 06:43] LABS: ALBUMIN 3.1 g/dL (3.4-5.0); CALCIUM 8.6 mg/dL (8.5-10.1); CREATININE 0.5 mg/dL (0.7-1.3); MAGNESIUM 1.8 mg/dL (1.8-2.4); PHOSPHORUS 4.7 mg/dL (2.5-4.9); POTASSIUM 3.4 mmol/L (3.5-5.1); TOTAL BILIRUBIN 0.8 mg/dL (<0.1-1.0)
[2017-01-26 08:00] VITALS: BP 161/97
[2017-01-26 12:44] VITALS: BP 161/97
[2017-01-26 12:58] VITALS: BP 161/97
[2017-01-26 13:03] VITALS: BP 161/97
[2017-01-28] MEDS ORDERED: TPN ELECTROLYTE20 M1 (19:37)
== END 2017-01-26 15:17 | disposition home health service (06) | DRG 438 ==
LOC: ER 16:09 → 4N 18:31 → EROBS 18:31 → 4N 19:19
PROVIDERS: Internal Medicine Gastroenterology; Internal Medicine Geriatric Medicine; Nurse Practitioner
PROC: 02HV33Z Insertion of Infusion Device into Superior Vena Cava, Percutaneous Approach (ICD-10-PCS; principal; 2017-01-25)
DX: K85.20 Alcohol induced acute pancreatitis without necrosis or infection (principal); E43 Unspecified severe protein-calorie malnutrition; K86.3 Pseudocyst of pancreas; I10 Essential (primary) hypertension; K76.0 Fatty (change of) liver, not elsewhere classified; E87.6 Hypokalemia; E11.9 Type 2 diabetes mellitus without complications; F10.10 Alcohol abuse, uncomplicated; Z87.891 Personal history of nicotine dependence; Z68.30 Body mass index [BMI] 30.0-30.9, adult; Z79.899 Other long term (current) drug therapy
CPT/HCPCS: 10091; 27000

== ENCOUNTER 2017-01-30 22:36 | Inpatient (IN) | payer BC, OTHER ==
[~2017-01-30] VITALS: Ht 185.4 cm; Wt 100.8 kg
--- NOTE | ~2017-01-30 | HC ---
[facility] [place] [address] [place] [address] CONSULTATION Name: BRYAN GARCIA Room #: 430-P [facility] IN M.R.#: [id number] Admission: 01/31/17 Attend Phys: Janes Burnham MD Discharge: Date of : 89 Report #: [id number] THIS REPORT FOR: //name// CC: Cyril Tate MD REASON FOR CONSULTATION: Abdominal pain, pancreatitis. HISTORY OF PRESENT ILLNESS: This is a 26-year-old male patient with a history of severe acute pancreatitis who was hospitalized with sepsis in mid December. His hospitalization lasted a couple of weeks and he required monitoring/treatment in the intensive care unit. He has been back on two other occasions since that time and presented to the [facility] once again yesterday with recurrent abdominal pain. His pancreatitis is felt to be secondary to heavy alcohol use, which he stopped 2 days prior to his admission in mid December. The patient has been started on TPN approximately 1 week ago and has been taking minimal oral intake; however, he took Tums yesterday for dyspepsia and soon after that, developed worsening abdominal pain with abdominal distention. He had associated nausea (secondary to the pain), but no emesis. He denies fever or chills. He was seen in the [facility] where he underwent a CT of the abdomen and pelvis showing persistent findings of pancreatitis with peripancreatic necrosis and inflammatory changes including pseudocyst formation. His most recent CT scan prior to this was one week ago on 01/24. There was no mentioned of potential necrosis on this study. PAST MEDICAL HISTORY: Significant for pancreatitis, alcoholism, and hypertension. PAST SURGICAL HISTORY: Denies. MEDICATIONS: At home include Colace, p.r.n. MiraLax and TPN. ALLERGIES: No known drug allergies. FAMILY HISTORY: Reviewed and noncontributory to this hospitalization. His paternal grandfather does have diabetes mellitus. SOCIAL HISTORY: The patient quit drinking alcohol in December. He quit smoking tobacco 3-4 years ago, but continues to use chewing tobacco. 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 He is accompanied by his . REVIEW OF SYSTEMS: As per history of present illness, in addition, GENERAL: The patient denies recent unintentional weight loss. Denies fever, had chills last night. HEENT: Denies changes in taste, vision, hearing, or smell. [facility] [address] [place] [address] CONSULTATION Name: BRYAN GARCIA Room #: 430-P [facility] IN ..#: [id number] Admission: 01/31/17 Attend Phys: Janes Burnham MD Discharge: Date of : 88 Report #: [id number] RESPIRATORY: Denies shortness of breath, COPD, or asthma. CARDIOVASCULAR: Denies chest pain or palpitations. GASTROINTESTINAL: As per history of present illness. He also reports diarrhea at home. Denies bright red blood per rectum. Reports that the stools float in the toilet rather than sinking to the bottom. GENITOURINARY: Denies dysuria, urgency, increased urinary frequency, or hematuria. MUSCULOSKELETAL: Denies myalgia, arthralgia, or arthritis. NEUROLOGIC: Denies headaches, numbness, or tingling. PSYCHIATRIC: Denies depression, anxiety, or suicidal ideations. SKIN AND INTEGUMENTARY: Denies new skin lesions, rashes, or moles. ENDOCRINE: Denies polydipsia, polyuria, heat or cold intolerance. HEMATOLOGIC: Denies easy bleeding, bruising or anemia. All other review of systems is negative. PHYSICAL EXAMINATION: VITAL SIGNS: Temperature 97.8, blood pressure 131/97, pulse 95, and respirations 20. GENERAL: This is a well-developed, well-nourished, friendly, cooperative 26-year-old male patient who is accompanied by his . He is in no acute distress. HEENT: Atraumatic, normocephalic with moist mucosal membranes. Oropharynx is clear. He has no scleral icterus. NECK: Supple, no appreciable lymphadenopathy. Trachea is midline. CHEST: Clear bilaterally. No crackles or wheezes. CARDIOVASCULAR: Regular rate and rhythm. ABDOMEN: Soft, but tender to palpation in the upper epigastrium. His pain radiates through his back. He has no rebound and mild guarding. No palpable masses, no appreciable hernias. GENITOURINARY: Normal external male genitalia. EXTREMITIES: No clubbing, cyanosis or edema. NEUROLOGIC: Cranial nerves 2-12 are grossly intact. PSYCHIATRIC: Normal mood and affect. SKIN AND INTEGUMENTARY: No acute inflammatory changes, rashes or lesions are present. Tattoos are present. LABORATORY DATA: CBC from this morning shows a white blood cell count 5.9 (admission white count was 11.3), hemoglobin 11.8, hematocrit 35.9 and platelets 219. His comprehensive metabolic profile yesterday showed a sodium 139, potassium 4.0, chloride 101, CO2 of 22, BUN 13, creatinine 0.7, and glucose 121. His AST was mildly elevated at 47, ALT normal at 44, alkaline phosphatase normal at 67, and total bilirubin mildly elevated at 1.2. His lipase was elevated at 1271. Lactate was normal at 0.7. Ionized calcium yesterday was normal at 5.2. RADIOLOGIC STUDIES: CT of the abdomen and pelvis, findings are as noted above. [facility] [address] [place] [address] CONSULTATION Name: BRYAN GARCIA Room #: 430-P [facility] IN ..#: [id number] Admission: 01/31/17 Attend Phys: Janes Burnham MD Discharge: Date of : 89 Report #: [id number] IMPRESSION AND PLAN: This is a 26-year-old male patient with history of severe acute pancreatitis with pancreatic pseudocyst formation, who was admitted with abdominal pain after taking Tums. He was started on TPN last week. 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 He has no clinical evidence for infection and does not appear to be septic at this time. The pathophysiology and natural history of pancreatitis and pancreatic necrosis was discussed with the patient as well as further evaluation, treatment alternatives, and surgical options. The patient would benefit from continued observation with surgery indicated if infection is suspected (not suspected at this time). Would continue minimal oral intake and TPN. The amount of lipids in his TPN should be decreased. The patient should also avoid taking TUMS and would benefit from a proton pump inhibitor or H2 receptor jones instead of taking TUMS for his symptoms of dyspepsia. Regarding his pseudocyst, he would benefit from an internal drainage of the pseudocyst. This has been discussed with him in the past and he would like to undergo the procedure endoscopically (endoscopic cystogastrostomy with endoscopic ultrasound guidance). Other alternatives are for surgical internal drainage. Would continue current supportive care for now, pain control, and antibiotics while hospitalized. I will follow along with you. I sincerely appreciate the opportunity to participate in the care of this patient and we will leave further recommendations and orders in the electronic medical record as appropriate. Thank you very much. <ELECTRONICALLY SIGNED> By: Pb Tate MD, FACS 02/01/17 1533 0951 1118 Pb Tate MD, FACS /nt
[2017-01-30 22:36] VITALS: BP 162/111
[~2017-01-30 22:36] MED LIST changes: +TPN ELECTROLYTE20 M1
[2017-01-30 23:37] LABS: HEMATOCRIT 39.2 % (42.0-52.0); HEMOGLOBIN 13.2 gm/dL (14.0-18.0); MCH 30.4 pg (26.0-34.0); MCHC 33.5 g/dL (28.0-37.0); MCV 90.7 fL (80.0-100.0); RBC 4.33 mil/uL (4.50-6.00); RDW 12.6 % (10.5-14.5); WBC 11.3 thou/uL (4.0-11.0)
[2017-01-30 23:55] LABS: ALBUMIN 4.3 g/dL (3.4-5.0); CALCIUM 10.1 mg/dL (8.5-10.1); CREATININE 0.7 mg/dL (0.7-1.3); TOTAL BILIRUBIN 1.2 mg/dL (<0.1-1.0); TOTAL PROTEIN 8.6 g/dL (6.4-8.2)
[2017-01-31 01:39] VITALS: BP 145/94
[2017-01-31 02:06] VITALS: BP 145/102
[2017-01-31 05:26] VITALS: BP 135/80
[2017-01-31 07:41] VITALS: BP 152/98
[2017-01-31 15:22] VITALS: BP 131/91
[2017-02-01] VITALS: BP 133/92
[2017-02-01 01:56] LABS: HEMATOCRIT 35.9 % (42.0-52.0); HEMOGLOBIN 11.8 gm/dL (14.0-18.0); MCH 30.3 pg (26.0-34.0); MCHC 32.9 g/dL (28.0-37.0); MCV 92.2 fL (80.0-100.0); RBC 3.89 mil/uL (4.50-6.00); RDW 12.6 % (10.5-14.5); WBC 5.9 thou/uL (4.0-11.0)
[2017-02-01 04:01] VITALS: BP 131/97
[2017-02-01 09:37] VITALS: BP 132/84
[2017-02-01 15:27] VITALS: BP 128/88
[2017-02-01 20:21] VITALS: BP 143/93
[2017-02-02 03:56] VITALS: BP 144/93
[2017-02-02 07:50] VITALS: BP 126/71
[2017-02-02 08:09] LABS: HEMOGLOBIN 11.9 gm/dL (14.0-18.0); WBC 15.1 thou/uL (4.0-11.0)
[2017-02-02 08:10] LABS: HEMATOCRIT 36.1 % (42.0-52.0); MCH 30.2 pg (26.0-34.0); MCV 91.7 fL (80.0-100.0); RBC 3.94 mil/uL (4.50-6.00); RDW 12.6 % (10.5-14.5)
[2017-02-02 08:27] LABS: ALBUMIN 3.6 g/dL (3.4-5.0); CALCIUM 9.2 mg/dL (8.5-10.1); CREATININE 0.7 mg/dL (0.7-1.3); MAGNESIUM 1.9 mg/dL (1.8-2.4); POTASSIUM 3.6 mmol/L (3.5-5.1); TOTAL BILIRUBIN 1.7 mg/dL (<0.1-1.0)
[2017-02-02 15:25] VITALS: BP 145/98
[2017-02-02 21:00] VITALS: BP 147/111
[2017-02-03 05:28] LABS: ABSOLUTE NEUTROPHILS 4.6 thou/uL (1.4-8.2); BASOPHILS 0.7 % (0.0-2.0); EOSINOPHILS 4.1 % (0.0-3.0); HEMOGLOBIN 11.6 gm/dL (14.0-18.0); LYMPHOCYTES 18.8 % (24.0-44.0); MCH 30.3 pg (26.0-34.0); MCHC 33.1 g/dL (28.0-37.0); MCV 91.7 fL (80.0-100.0); MONOCYTES 9.6 % (1.0-8.0); PLATELET COUNT 212 thou/uL (150-400); POLYS 66.8 % (36.0-66.0); RBC 3.81 mil/uL (4.50-6.00); RDW 12.7 % (10.5-14.5)
[2017-02-03 05:32] LABS: MANUAL DIFF NO
[2017-02-03 05:41] LABS: ALBUMIN 3.4 g/dL (3.4-5.0); CALCIUM 8.9 mg/dL (8.5-10.1); CREATININE 0.6 mg/dL (0.7-1.3); PHOSPHORUS 2.9 mg/dL (2.5-4.9); POTASSIUM 4.2 mmol/L (3.5-5.1); TOTAL PROTEIN 7.2 g/dL (6.4-8.2)
[2017-02-03 06:00] VITALS: BP 125/80
[2017-02-03] MEDS ORDERED: PERCOCET PO (11:04)
[2017-02-03 11:09] VITALS: BP 125/80
[2017-02-03 11:52] VITALS: BP 125/80
== END 2017-02-03 13:00 | disposition home health service (06) | DRG 440 ==
LOC: ER 22:36 → EROBS 01-31 00:31 → 4E 01-31 01:40
PROVIDERS: Emergency Medicine; Hospitalist; Internal Medicine Gastroenterology; Nurse Practitioner Family; Surgery
DX: K85.90 Acute pancreatitis without necrosis or infection, unspecified (principal); I10 Essential (primary) hypertension; Z79.899 Other long term (current) drug therapy
CPT/HCPCS: 10084